=== PATIENT | female | born 1965 | race African-American/Black ===

== ENCOUNTER 2017-12-08 07:10 | Inpatient (IN) | payer OTHER ==
[~2017-12-08] VITALS: Ht 162.6 cm; Wt 108.9 kg
[2017-12-08] MEDS ORDERED: Isovue-370 150ml vial INJ PRN (07:15)
[2017-12-08] MEDS ORDERED: Aspirin Baby 81mg ORAL ONE (07:30)
--- NOTE | 2017-12-08 07:39 | Emergency Room Report ---
History of Present Illness General Chief Complaint: Abdominal Pain Source: Patient Present Illness HPI Patient is a 52-year-old female brought in by EMS after increased burning sensation to her epigastric area. Patient prior history of gastroesophageal reflux. She reports having increased pain with deep breath. Patient prior history of deep venous thrombosis and previously been on Coumadin. She denies any recent Coumadin use. Patient denied any hematemesis or bloody stools. The patient was having prior history of gastric reflux. Allergies: Coded Allergies: TRAMADOL (Verified Allergy, Unknown, 12/08/17) Patient History Past Medical History: see triage record Last Menstrual Period: unk Reviewed Nursing Documentation: PMH: Agreed; PSxH: Agreed Nursing Documentation-PMH Past Medical History: No History, Except For Hx Asthma: Yes Hx Gastrointestinal Problems: Yes - GERD Review of Systems All Other Systems: negative except mentioned in HPI Physical Exam Vital Signs Date Time Temp Pulse Resp B/P (MAP) Pulse Ox O2 Delivery O2 Flow Rate FiO2 12/08/17 07:02 98.3 76 16 123/76 99 Room Air 98.2 Sp02 EP Interpretation: reviewed, normal General Appearance: normal inspection, well appearing, no apparent distress, alert, GCS 15 Head: atraumatic ENT: normal ENT inspection, hearing grossly normal, normal voice Neck: normal inspection, full range of motion, supple, no bony tend Respiratory: normal inspection, lungs clear, normal breath sounds, no respiratory distress, no retraction, no wheezing Cardiovascular #1: regular rate, rhythm, no edema Gastrointestinal: normal inspection, normal bowel sounds, non tender, soft, no guarding, no hernia Genitourinary: no CVA tenderness Musculoskeletal: normal inspection, back normal, normal range of motion Neurologic: normal inspection, alert, oriented x3, responsive, spring tester III-XII nml as tested, speech normal Psychiatric: normal inspection, judgement/insight normal, mood/affect normal Skin: normal inspection, normal color, no rash Medical Decision Making Diagnostic Impression: Primary Impression: Chest pain Additional Impressions: ACS (acute coronary syndrome) Pleural effusion, left Pneumonia ER Course Patient presented for chest pain. Differential diagnosis included but was not limited to acute coronary syndrome, pulmonary embolism, pneumonia, aortic dissection, shingles, pneumothorax, aortic dissection, esophageal rupture, pericarditis. Because of complexity of patient's case laboratory testing and imaging studies were ordered. EKG interpreted by me showed normal sinus rhythm with a rate of 71 with anterior lateral T-wave inversion. The patient was given aspirin. She was also given acid blockers. A CTA was ordered due to patient's prior history of DVT and risk for PE. CTA read by radiology showed left basilar consolidation, left pleural fluid. Minimal pericardial thickening. Dr. Nikhil Gibbs was contacted for inpatient management Labs Test 12/08/17 07:30 White Blood Count 8.4 K/UL (4.8-10.8) Red Blood Count 4.20 M/UL (4.20-5.40) Hemoglobin 12.4 G/DL (12.0-16.0) Hematocrit 37.5 % (37.0-47.0) Mean Corpuscular Volume 89 FL (80-99) Mean Corpuscular Hemoglobin 29.5 PG (27.0-31.0) Mean Corpuscular Hemoglobin Concent 33.0 G/DL (32.0-36.0) Red Cell Distribution Width 13.1 % (11.6-14.8) Platelet Count 359 K/UL (150-450) Mean Platelet Volume 6.0 FL (6.5-10.1) Neutrophils (%) (Auto) 63.6 % (45.0-75.0) Lymphocytes (%) (Auto) 29.3 % (20.0-45.0) Monocytes (%) (Auto) 4.4 % (1.0-10.0) Eosinophils (%) (Auto) 1.4 % (0.0-3.0) Basophils (%) (Auto) 1.2 % (0.0-2.0) Prothrombin Time 9.7 SEC (9.30-11.50) Prothromb Time International Ratio 0.9 (0.9-1.1) Activated Partial Thromboplast Time 31 SEC (23-33) D-Dimer 1.52 mg/L FEU (0.00-0.49) Sodium Level 141 MMOL/L (136-145) Potassium Level 4.3 MMOL/L (3.5-5.1) Chloride Level 106 MMOL/L (98-107) Carbon Dioxide Level 27 MMOL/L (21-32) Anion Gap 8 mmol/L (5-15) Blood Urea Nitrogen 16 mg/dL (7-18) Creatinine 0.9 MG/DL (0.55-1.30) Estimat Glomerular Filtration Rate > 60 mL/min (>60) Glucose Level 149 MG/DL (74-106) Calcium Level 9.0 MG/DL (8.5-10.1) Total Bilirubin 0.2 MG/DL (0.2-1.0) Aspartate Amino Transf (AST/SGOT) 14 U/L (15-37) Alanine Aminotransferase (ALT/SGPT) 23 U/L (12-78) Alkaline Phosphatase 105 U/L (46-116) Total Creatine Kinase 65 U/L (26-308) Creatine Kinase MB 0.5 NG/ML (0.0-3.6) Creatine Kinase MB Relative Index 0.7 Troponin I 0.017 ng/mL (0.000-0.056) Pro-B-Type Natriuretic Peptide 64 pg/mL (0-125) Total Protein 7.7 G/DL (6.4-8.2) Albumin 3.5 G/DL (3.4-5.0) Globulin 4.2 g/dL Albumin/Globulin Ratio 0.8 (1.0-2.7) EKG Diagnostic Results Rate: normal Rhythm: NSR ST Segments: other - anterolateral t wave inversion Rhythm Strip Diag. Results EP Interpretation: yes Rhythm: NSR - 76, no PVC's, no ectopy Last Vital Signs Date Time Temp Pulse Resp B/P (MAP) Pulse Ox O2 Delivery O2 Flow Rate FiO2 12/08/17 07:02 98.3 76 16 123/76 99 Room Air 98.2 Status: unchanged Disposition: ADMITTED INPATIENT Condition: Serious Nico Santana MD Dec 08, 2017 07:39
[2017-12-08 07:41] LABS: BASOPHILS % (AUTO) 1.2 % (0.0-2.0); EOSINOPHILS % (AUTO) 1.4 % (0.0-3.0); HEMATOCRIT 37.5 % (37.0-47.0); HEMOGLOBIN 12.4 G/DL (12.0-16.0); LYMPHOCYTES % (AUTO) 29.3 % (20.0-45.0); MEAN CORPUSCULAR VOLUME 89 FL (80-99); MONOCYTES % (AUTO) 4.4 % (1.0-10.0); NEUTROPHILS % (AUTO) 63.6 % (45.0-75.0); PLATELET COUNT 359 K/UL (150-450); RED CELL DISTRIBUTION WIDTH 13.1 % (11.6-14.8); WHITE BLOOD COUNT 8.4 K/UL (4.8-10.8)
[2017-12-08 07:46] VITALS: BP 123/76
[2017-12-08 07:50] LABS: ANION GAP 8 mmol/L (5-15); BLOOD UREA NITROGEN 16 mg/dL (7-18); CARBON DIOXIDE 27 MMOL/L (21-32); CHLORIDE 106 MMOL/L (98-107); CREATININE 0.9 MG/DL (0.55-1.30); POTASSIUM 4.3 MMOL/L (3.5-5.1); SODIUM 141 MMOL/L (136-145)
[2017-12-08 07:52] LABS: INR 0.9 (0.9-1.1)
[2017-12-08 08:09] LABS: ALANINE AMINOTRANSFERASE 23 U/L (12-78); ALBUMIN 3.5 G/DL (3.4-5.0); ALBUMIN/GLOBULIN RATIO 0.8 (1.0-2.7); ALKALINE PHOSPHATASE 105 U/L (46-116); ASPARTATE AMINO TRANSFERASE 14 U/L (15-37); BILIRUBIN,TOTAL 0.2 MG/DL (0.2-1.0); CKMB 0.5 NG/ML (0.0-3.6); CREATINE KINASE 65 U/L (26-308)
[2017-12-08 08:41] VITALS: BP 120/61
[2017-12-08] MEDS ORDERED: Morphine Sulfate 4mg/ml Inj IVP ONE (08:45)
--- NOTE | 2017-12-08 09:23 | Diagnostic Imaging Report ---
ndication: Chest pain Technique: IV administration nonionic contrast. Spiral acquisitions obtained from the lung bases to the lung apices. Multiplanar and 3-D reconstructions were generated. Total dose length product 1163.42 mGycm. CTDIvol(s) 37.74 mGy. Dose reduction achieved using automated exposure control Comparison: none Findings: There is good quality opacification of the pulmonary arteries. No intraluminal filling defects or other findings to suggest acute pulmonary embolus demonstrated. No evidence of thoracic aortic aneurysm or dissection. No definite pulmonary arterial dilatation or right ventricular dilatation. The heart is mildly enlarged Areas of consolidation are seen in the left lower lobe and minimally in the posterior left upper lobe. Dependent atelectatic changes are seen in the right lower lobe. There is trace pleural fluid on the left. No masses or nodules. There is minimal pericardial thickening or fluid. No mediastinal or hilar mass or adenopathy. No axillary or chest wall mass or adenopathy. The included upper abdominal anatomy is unremarkable Impression: Negative for evidence of acute pulmonary embolus or other acute thoracic vascular pathology Left basilar pulmonary parenchymal consolidation, may indicate pneumonia Trace left pleural fluid Minimal dependent right lower lobe atelectatic changes Minimal pericardial thickening or fluid The CT scanner at [facility] is accredited by the [employer] and the scans are performed using protocols designed to limit radiation exposure to as low as reasonably achievable to attain images of sufficient resolution adequate for diagnostic evaluation.
[2017-12-08 09:49] LABS: BILIRUBIN, URINE NEGATIVE (NEGATIVE); COLOR,URINE PALE YELLOW; GLUCOSE, URINE (UA) NEGATIVE (NEGATIVE); KETONES,URINE NEGATIVE (NEGATIVE); LEUKOCYTE ESTERASE ,URINE 1+ (NEGATIVE); NITRITE,URINE NEGATIVE (NEGATIVE); PH,URINE 7 (4.5-8.0); PROTEIN,URINE NEGATIVE (NEGATIVE); UROBILINOGEN,URINE NORMAL MG/DL (0.0-1.0)
--- NOTE | 2017-12-08 09:57 | Diagnostic Imaging Report ---
Indication: Shortness of breath Technique: One view of the chest Comparison: none Findings: There are retrocardiac infiltrates with air bronchograms. The right lung and bilateral pleural spaces are clear. The heart is borderline enlarged Impression: Retrocardiac infiltrate Borderline cardiomegaly
[2017-12-08] MEDS ORDERED: Miralax 17gm pkt ORAL PRN (10:00)
[2017-12-08] MEDS ORDERED: Albuterol/Ipratropium 3ml neb HHN PRN ×2 (10:00→11:15)
[2017-12-08] MEDS ORDERED: Nitroglycerin Subl 0.4mg tab SL PRN (10:00)
[2017-12-08] MEDS ORDERED: Enalaprilat 2.5mg/2ml Inj IV PRN (10:00)
[2017-12-08] MEDS ORDERED: Ampicillin/Sulbactam Sod 3 GM in NS 110 ML IVPB ONE (10:00)
[2017-12-08] MEDS ORDERED: Ketorolac 30mg Inj IV PRN (10:00)
[2017-12-08] MEDS ORDERED: dilTIAZem HCl 25mg/5ml Inj IV PRN (10:00)
[2017-12-08 10:04] LABS: APPEARANCE,URINE SLIGHTLY CLOUDY
[2017-12-08 10:47] VITALS: BP 95/71
[2017-12-08] MEDS ORDERED: Promethazine/Codeine 5ml UD ORAL PRN (11:15)
--- NOTE | 2017-12-08 11:15 | Consultation ---
History of Present Illness General Date patient seen: Dec 08, 2017 Chief Complaint: Abdominal Pain Present Illness HPI 52-year-old female with hx of asmth, non-smoker, DVT brought in by EMS with CC of burning sensation to her epigastric area. She reports having increased pain with deep breath. No fever or cough. Pt is admitted to telemetry b/o abnormal EKG. A CT of chest ruled out acute PE and showed some parenchymal changes in LLL. Allergies: Coded Allergies: TRAMADOL (Verified Allergy, Unknown, 12/08/17) Patient History Healthcare decision maker Resuscitation status Advanced Directive on File Past Medical/Surgical History Past Medical/Surgical History: (1) History of asthma Review of Systems All Other Systems: negative except mentioned in HPI Physical Exam General Appearance: WD/WN, no apparent distress Lines, tubes and drains: peripheral HEENT: normocephalic Neck: non-tender, normal alignment Respiratory/Chest: chest wall non-tender, lungs clear Breasts: no masses Cardiovascular/Chest: normal peripheral pulses, normal rate, regularly irregular Abdomen: normal bowel sounds Genitourinary/Rectal: normal genital exam Extremities: normal range of motion Skin Exam: normal pigmentation 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 Last 24 Hour Vital Signs Date Time Temp Pulse Resp B/P (MAP) Pulse Ox O2 Delivery O2 Flow Rate FiO2 12/08/17 10:47 98.5 16 95/71 99 Room Air 98.5 12/08/17 10:47 98.5 16 95/71 99 Room Air 98.5 12/08/17 08:41 98.5 16 120/61 99 Room Air 98.5 12/08/17 08:40 98.2 12/08/17 07:46 98.2 16 123/76 99 Room Air 98.2 12/08/17 07:02 98.3 76 16 123/76 99 Room Air 98.2 Laboratory Tests Test 12/08/17 07:30 12/08/17 09:20 12/08/17 10:00 White Blood Count 8.4 K/UL (4.8-10.8) Red Blood Count 4.20 M/UL (4.20-5.40) Hemoglobin 12.4 G/DL (12.0-16.0) Hematocrit 37.5 % (37.0-47.0) Mean Corpuscular Volume 89 FL (80-99) Mean Corpuscular Hemoglobin 29.5 PG (27.0-31.0) Mean Corpuscular Hemoglobin Concent 33.0 G/DL (32.0-36.0) Red Cell Distribution Width 13.1 % (11.6-14.8) Platelet Count 359 K/UL (150-450) Mean Platelet Volume 6.0 FL (6.5-10.1) L Neutrophils (%) (Auto) 63.6 % (45.0-75.0) Lymphocytes (%) (Auto) 29.3 % (20.0-45.0) Monocytes (%) (Auto) 4.4 % (1.0-10.0) Eosinophils (%) (Auto) 1.4 % (0.0-3.0) Basophils (%) (Auto) 1.2 % (0.0-2.0) Prothrombin Time 9.7 SEC (9.30-11.50) Prothromb Time International Ratio 0.9 (0.9-1.1) Activated Partial Thromboplast Time 31 SEC (23-33) D-Dimer 1.52 mg/L FEU (0.00-0.49) H Sodium Level 141 MMOL/L (136-145) Potassium Level 4.3 MMOL/L (3.5-5.1) Chloride Level 106 MMOL/L (98-107) Carbon Dioxide Level 27 MMOL/L (21-32) Anion Gap 8 mmol/L (5-15) Blood Urea Nitrogen 16 mg/dL (7-18) Creatinine 0.9 MG/DL (0.55-1.30) Estimat Glomerular Filtration Rate > 60 mL/min (>60) Glucose Level 149 MG/DL (74-106) H Calcium Level 9.0 MG/DL (8.5-10.1) Total Bilirubin 0.2 MG/DL (0.2-1.0) Aspartate Amino Transf (AST/SGOT) 14 U/L (15-37) L Alanine Aminotransferase (ALT/SGPT) 23 U/L (12-78) Alkaline Phosphatase 105 U/L (46-116) Total Creatine Kinase 65 U/L (26-308) Creatine Kinase MB 0.5 NG/ML (0.0-3.6) Creatine Kinase MB Relative Index 0.7 Troponin I 0.017 ng/mL (0.000-0.056) Pro-B-Type Natriuretic Peptide 64 pg/mL (0-125) Total Protein 7.7 G/DL (6.4-8.2) Albumin 3.5 G/DL (3.4-5.0) Globulin 4.2 g/dL Albumin/Globulin Ratio 0.8 (1.0-2.7) L Urine Color Pale yellow Urine Appearance Slightly cloudy Urine pH 7 (4.5-8.0) Urine Specific [place] 1.005 (1.005-1.035) Urine Protein Negative (NEGATIVE) Urine Glucose (UA) Negative (NEGATIVE) Urine Ketones Negative (NEGATIVE) Urine Occult Blood 2+ (NEGATIVE) H Urine Nitrite Negative (NEGATIVE) Urine Bilirubin Negative (NEGATIVE) Urine Urobilinogen Normal MG/DL (0.0-1.0) Urine Leukocyte Esterase 1+ (NEGATIVE) H Urine RBC 2-4 /HPF (0 - 2) H Urine WBC 2-4 /HPF (0 - 2) Urine Squamous Epithelial Cells Few /LPF (NONE/OCC) Urine Bacteria Few /HPF (NONE) Urine Opiates Screen Negative (NEGATIVE) Urine Barbiturates Screen Negative (NEGATIVE) Phencyclidine (PCP) Screen Negative (NEGATIVE) Urine Amphetamines Screen Negative (NEGATIVE) Urine Benzodiazepines Screen Negative (NEGATIVE) Urine Cocaine Screen Negative (NEGATIVE) Urine Marijuana (THC) Screen Negative (NEGATIVE) Lactic Acid Level 1.40 mmol/L (0.4-2.0) Height (Feet): 5 Height (Inches): 4.00 Weight (Pounds): 243 Medications Current Medications Medications (Trade) Dose Ordered Sig/Raghu Route PRN Reason Start Time Stop Time Status Last Admin Dose Admin Acetaminophen (Tylenol) 650 mg Q4H PRN ORAL FEVER 12/08/17 10:00 01/07/18 09:59 Albuterol/ Ipratropium (Albuterol/ Ipratropium) 3 ml Q4H PRN HHN Shortness of Breath 12/08/17 10:00 12/13/17 09:59 Aspirin (ASA) 162 mg DAILY ORAL 12/09/17 09:00 01/08/18 08:59 Diltiazem HCl (Cardizem) 10 mg Q1H PRN IV heart rate more than 120 12/08/17 10:00 01/07/18 09:59 Enalaprilat (Vasotec) 2.5 mg Q6H PRN IV sbp more than 160 12/08/17 10:00 01/07/18 09:59 Heparin Sodium (Porcine) (Heparin 5000 units/ml) 5,000 units EVERY 12 HOURS SUBQ 12/08/17 21:00 01/07/18 20:59 Iopamidol (Isovue-370 150ml) 150 ml NOW PRN INJ Radiology Procedure 12/08/17 07:15 12/10/17 07:12 Ketorolac Tromethamine (Toradol 30mg) 30 mg Q6H PRN IV moderate pain ( 4-6) 12/08/17 10:00 12/13/17 09:59 Nitroglycerin (Ntg) 0.4 mg Q5M PRN SL Prn Chest Pain 12/08/17 10:00 01/07/18 09:59 Ondansetron HCl (Zofran) 4 mg Q6H PRN IVP Nausea & Vomiting 12/08/17 10:00 01/07/18 09:59 Polyethylene Glycol (Miralax) 17 gm DAILYPRN PRN ORAL Constipation 12/08/17 10:00 01/07/18 09:59 Temazepam (Restoril) 15 mg HSPRN PRN ORAL Insomnia 12/08/17 10:00 12/15/17 09:59 Assessment/Plan Problem List: (1) ACS (acute coronary syndrome) ICD Codes: I24.9 - Acute ischemic heart disease, unspecified SNOMED: 417617413 (2) Pneumonia ICD Codes: J18.9 - Pneumonia, unspecified organism SNOMED: 119223386 (3) Costochondritis ICD Codes: M94.0 - Chondrocostal junction syndrome [Tietze] SNOMED: 69724064 (4) History of asthma ICD Codes: Z87.09 - Personal history of other diseases of the respiratory system SNOMED: 328108450 (5) GERD (gastroesophageal reflux disease) ICD Codes: K21.9 - Gastro-esophageal reflux disease without esophagitis SNOMED: 056319863 Assessment/Plan serial EKG, troponin, Echo, cardiology to see sputum for c/s start Levofloxacin symptomatic treatment respiratory treatment. Tyra Lawrence MD Dec 08, 2017 11:15
[2017-12-08 12:00] VITALS: BP 120/68
--- NOTE | 2017-12-08 13:55 | Cardiology Report ---
APPROVED REPORT EXAM: Two-dimensional and M-mode echocardiogram with Doppler and color Doppler. INDICATION LV FUNCTION M-Mode DIMENSIONS IVSd1.2 (0.7-1.1cm)Left Atrium (MM)3.3 (1.6-4.0cm) LVDd5.7 (3.5-5.6cm)Aortic Root3.5 (2.0-3.7cm) PWd1.3 (0.7-1.1cm)Aortic Cusp Exc.1.9 (1.5-2.0cm) IVSs1.4 cm LVDs3.9 (2.5-4.0cm) PWs1.7 cm Normal left ventricular chamber size, systolic function and wall motion . Left ventricular ejection fraction estimated to be 65-70 %. Mild left ventricular hypertrophy by 2-D. No evidence of pericardial effusion. All other cardiac chamber sizes are within normal limits. Focal aortic valve sclerosis with adequate cusp excursion. Mildly Thickened mitral valve leaflets with normal excursion. Mildly Mitral annulus and aortic root calcification. Pulmonic valve not well visualized. Normal tricuspid valve structure. IVC at normal size with physiologic collapse . A color flow and spectral Doppler study was performed and revealed: No aortic regurgitation. Trace mitral regurgitation. Mitral diastolic velocities suggest reduced left ventricular relaxation c/w mild LV diastolic dysfunction (Grade I ). Mild tricuspid regurgitation. Tricuspid systolic velocities suggests peak right ventricular systolic pressure of 30mmHg. Trace Pulmonic regurgitation present.
--- NOTE | 2017-12-08 14:55 | Cardiology Report ---
APPROVED REPORT EKG Measurement Heart [id number] Normal sinus rhythm T wave abnormality, consider anterolateral ischemia Abnormal ECG
[2017-12-08 16:00] VITALS: BP 121/65
--- NOTE | 2017-12-08 16:48 | Consultation ---
History of Present Illness General Time patient seen: 18:52 Chief Complaint: Abdominal Pain Present Illness HPI 52 y/o female presents w/CP and epigastric pain. EKG with anterolateral ischemia. Echo with preserved LV function, D dimer elevated, CTA negative for PE. Hx of DVT 10 years ago. Chest c ray with small left pleural effusion. Troponin negative x2 Allergies: Coded Allergies: TRAMADOL (Verified Allergy, Unknown, 12/08/17) Patient History Healthcare decision maker Resuscitation status Full Code Advanced Directive on File Review of Systems Constitutional: Reports: no symptoms Eye: Reports: no symptoms ENT: Reports: no symptoms Respiratory: Reports: no symptoms Cardiovascular: Reports: chest pain Gastrointestinal: Reports: abdominal pain Genitourinary: Reports: no symptoms Musculoskeletal: Reports: no symptoms Skin: Reports: no symptoms Psychiatric: Reports: no symptoms Neurological: Reports: no symptoms Endocrine: Reports: no symptoms Hematologic/Lymphatic: Reports: no symptoms Physical Exam General Appearance: no apparent distress Lines, tubes and drains: peripheral HEENT: normocephalic Neck: non-tender Respiratory/Chest: chest wall non-tender Cardiovascular/Chest: normal peripheral pulses Abdomen: normal bowel sounds Extremities: normal range of motion Skin Exam: normal pigmentation 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 Last 24 Hour Vital Signs Date Time Temp Pulse Resp B/P (MAP) Pulse Ox O2 Delivery O2 Flow Rate FiO2 12/08/17 10:47 98.5 16 95/71 99 Room Air 98.5 12/08/17 10:47 98.5 16 95/71 99 Room Air 98.5 12/08/17 08:41 98.5 16 120/61 99 Room Air 98.5 12/08/17 08:40 98.2 12/08/17 07:46 98.2 16 123/76 99 Room Air 98.2 12/08/17 07:02 98.3 76 16 123/76 99 Room Air 98.2 Laboratory Tests Test 12/08/17 07:30 12/08/17 09:20 12/08/17 10:00 12/08/17 14:05 White Blood Count 8.4 K/UL (4.8-10.8) Red Blood Count 4.20 M/UL (4.20-5.40) Hemoglobin 12.4 G/DL (12.0-16.0) Hematocrit 37.5 % (37.0-47.0) Mean Corpuscular Volume 89 FL (80-99) Mean Corpuscular Hemoglobin 29.5 PG (27.0-31.0) Mean Corpuscular Hemoglobin Concent 33.0 G/DL (32.0-36.0) Red Cell Distribution Width 13.1 % (11.6-14.8) Platelet Count 359 K/UL (150-450) Mean Platelet Volume 6.0 FL (6.5-10.1) L Neutrophils (%) (Auto) 63.6 % (45.0-75.0) Lymphocytes (%) (Auto) 29.3 % (20.0-45.0) Monocytes (%) (Auto) 4.4 % (1.0-10.0) Eosinophils (%) (Auto) 1.4 % (0.0-3.0) Basophils (%) (Auto) 1.2 % (0.0-2.0) Prothrombin Time 9.7 SEC (9.30-11.50) Prothromb Time International Ratio 0.9 (0.9-1.1) Activated Partial Thromboplast Time 31 SEC (23-33) D-Dimer 1.52 mg/L FEU (0.00-0.49) H Sodium Level 141 MMOL/L (136-145) Potassium Level 4.3 MMOL/L (3.5-5.1) Chloride Level 106 MMOL/L (98-107) Carbon Dioxide Level 27 MMOL/L (21-32) Anion Gap 8 mmol/L (5-15) Blood Urea Nitrogen 16 mg/dL (7-18) Creatinine 0.9 MG/DL (0.55-1.30) Estimat Glomerular Filtration Rate > 60 mL/min (>60) Glucose Level 149 MG/DL (74-106) H Calcium Level 9.0 MG/DL (8.5-10.1) Total Bilirubin 0.2 MG/DL (0.2-1.0) Aspartate Amino Transf (AST/SGOT) 14 U/L (15-37) L Alanine Aminotransferase (ALT/SGPT) 23 U/L (12-78) Alkaline Phosphatase 105 U/L (46-116) Total Creatine Kinase 65 U/L (26-308) Creatine Kinase MB 0.5 NG/ML (0.0-3.6) Creatine Kinase MB Relative Index 0.7 Troponin I 0.017 ng/mL (0.000-0.056) 0.017 ng/mL (0.000-0.056) Pro-B-Type Natriuretic Peptide 64 pg/mL (0-125) Total Protein 7.7 G/DL (6.4-8.2) Albumin 3.5 G/DL (3.4-5.0) Globulin 4.2 g/dL Albumin/Globulin Ratio 0.8 (1.0-2.7) L Urine Color Pale yellow Urine Appearance Slightly cloudy Urine pH 7 (4.5-8.0) Urine Specific [place] 1.005 (1.005-1.035) Urine Protein Negative (NEGATIVE) Urine Glucose (UA) Negative (NEGATIVE) Urine Ketones Negative (NEGATIVE) Urine Occult Blood 2+ (NEGATIVE) H Urine Nitrite Negative (NEGATIVE) Urine Bilirubin Negative (NEGATIVE) Urine Urobilinogen Normal MG/DL (0.0-1.0) Urine Leukocyte Esterase 1+ (NEGATIVE) H Urine RBC 2-4 /HPF (0 - 2) H Urine WBC 2-4 /HPF (0 - 2) Urine Squamous Epithelial Cells Few /LPF (NONE/OCC) Urine Bacteria Few /HPF (NONE) Urine Opiates Screen Negative (NEGATIVE) Urine Barbiturates Screen Negative (NEGATIVE) Phencyclidine (PCP) Screen Negative (NEGATIVE) Urine Amphetamines Screen Negative (NEGATIVE) Urine Benzodiazepines Screen Negative (NEGATIVE) Urine Cocaine Screen Negative (NEGATIVE) Urine Marijuana (THC) Screen Negative (NEGATIVE) Lactic Acid Level 1.40 mmol/L (0.4-2.0) Height (Feet): 5 Height (Inches): 4.00 Weight (Pounds): 240 Medications Current Medications Medications (Trade) Dose Ordered Sig/Raghu Route PRN Reason Start Time Stop Time Status Last Admin Dose Admin Acetaminophen (Tylenol) 650 mg Q4H PRN ORAL FEVER 12/08/17 10:00 01/07/18 09:59 Albuterol/ Ipratropium (Albuterol/ Ipratropium) 3 ml Q4H PRN HHN Shortness of Breath 12/08/17 11:15 12/13/17 11:14 Aspirin (ASA) 162 mg DAILY ORAL 12/09/17 09:00 01/08/18 08:59 Diltiazem HCl (Cardizem) 10 mg Q1H PRN IV heart rate more than 120 12/08/17 10:00 01/07/18 09:59 Enalaprilat (Vasotec) 2.5 mg Q6H PRN IV sbp more than 160 12/08/17 10:00 01/07/18 09:59 Heparin Sodium (Porcine) (Heparin 5000 units/ml) 5,000 units EVERY 12 HOURS SUBQ 12/08/17 21:00 01/07/18 20:59 Iopamidol (Isovue-370 150ml) 150 ml NOW PRN INJ Radiology Procedure 12/08/17 07:15 12/10/17 07:12 Ketorolac Tromethamine (Toradol 30mg) 30 mg Q6H PRN IV moderate pain ( 4-6) 12/08/17 10:00 12/13/17 09:59 12/08/17 13:58 Levofloxacin 100 ml @ 100 mls/hr Q24H IVPB 12/08/17 13:00 12/15/17 12:59 12/08/17 13:45 Nitroglycerin (Ntg) 0.4 mg Q5M PRN SL Prn Chest Pain 12/08/17 10:00 01/07/18 09:59 Ondansetron HCl (Zofran) 4 mg Q6H PRN IVP Nausea & Vomiting 12/08/17 10:00 01/07/18 09:59 Polyethylene Glycol (Miralax) 17 gm DAILYPRN PRN ORAL Constipation 12/08/17 10:00 01/07/18 09:59 Promethazine HCl/ Codeine (Phenergan with Codeine) 5 ml Q4H PRN ORAL For Cough 12/08/17 11:15 01/07/18 11:14 Temazepam (Restoril) 15 mg HSPRN PRN ORAL Insomnia 12/08/17 10:00 12/15/17 09:59 Assessment/Plan Status: stable Assessment/Plan 1-Aspirin 2-Statin 3-H pylori testing 4- Omeprazole 5 -EKG/Echo reviewed, troponin negative 6 -Plan for stress test in Edgar Moran M.D. Dec 08, 2017 16:48
--- NOTE | 2017-12-08 19:01 | History & Physical ---
History and Physical History & Physicial Dictated for Int Med-Dr Gibbs no. [id number]. Clay Fermin MD Dec 08, 2017 19:01
[2017-12-08 20:00] VITALS: BP 128/74
[2017-12-08] MEDS: Heparin 5000 units/ml inj SUBQ SCH (21:38)
--- NOTE | 2017-12-08 23:30 | History and Physical Report ---
DATE OF ADMISSION: 12/08/2017 CHIEF COMPLAINT: This is a 52-year-old, -[place] female, presents with chief complaint of chest pain. HISTORY OF PRESENT ILLNESS: The patient has a history of right leg deep venous thrombosis 12 years ago. The patient was on Coumadin at that time. History of present illness began early this morning. The patient was awakened from her sleep with left-sided chest pain. There was radiation to the epigastric region. The patient was transported via EMS to [facility]. The patient is admitted with chest pain to rule out acute coronary syndrome versus pulmonary embolism. REVIEW OF SYSTEMS: CONSTITUTIONAL: The patient denies weight loss or weight gain. The patient denies fevers or chills. HEENT: The patient denies ear or throat pain. The patient denies headache. CARDIOVASCULAR: The patient complains of chest pain as above. The patient denies palpitations. CHEST: The patient denies wheezing or shortness of breath. ABDOMEN: The patient denies nausea, vomiting, diarrhea, or constipation. The patient does complain of epigastric pain as above. NEUROMUSCULAR: The patient denies seizures or generalized weakness. GENITOURINARY: The patient denies dysuria or increased frequency of urination. PAST MEDICAL HISTORY: Significant for, 1. Right leg deep venous thrombosis 12 years ago. 2. Asthma. 3. Arthritis. PAST SURGICAL HISTORY: Significant for laparoscopic cholecystectomy. CURRENT MEDICATIONS: The patient denies. ALLERGIES: To tramadol. SOCIAL HISTORY: The patient is single and is unemployed. The patient denies tobacco or alcohol use. PHYSICAL EXAMINATION: VITAL SIGNS: Temperature 98.5, respirations 16, pulse 77, and blood pressure 95/71. GENERAL: The patient is a well-developed, well-nourished, obese -[place] female, in no apparent distress. HEENT: Eyes, pupils are equal responsive to light and accommodation. Extraocular movements are intact. NECK: Supple without lymphadenopathy. CHEST: Lungs are clear to auscultation bilaterally without wheezes or rales. CARDIOVASCULAR: Regular rhythm and rate. S1 and S2 are normal without murmurs, rubs, or gallops. ABDOMEN: Soft, nontender, nondistended with positive bowel sounds. No evidence of hepatosplenomegaly. Currently, no rebound or guarding noted. EXTREMITIES: Negative for clubbing, cyanosis, or edema. RECTAL/GENITAL: Refused. NEUROLOGIC: Cranial nerves II through XII are grossly intact without focal deficits. Motor strength is 5/5 bilaterally. Deep tendon reflexes are 2+ plantar. LABORATORY STUDIES: WBC 8.4, hemoglobin 12.4, hematocrit 37.5, platelets 259,000, sodium 141, potassium 4.3, chloride 106, CO2 27, BUN 16, creatinine 0.9, glucose 149. Troponin normal at 0.017. Chest x-ray revealed retrocardiac infiltrate. A CT angiogram of the chest was reported as negative for pulmonary embolus. ASSESSMENT: This is a 52-year-old -[place] female: 1. Retrocardiac pneumonia. 2. Chest pain. 3. Epigastric pain. 4. Asthma. 5. Arthritis. 6. Obesity. PLAN: 1. Retrocardiac pneumonia. The patient has been started empirically on intravenous Levaquin. A Pulmonary consultation has been obtained with Dr. Tyra Lawrence. The patient has received Zosyn in the emergency room. We will follow recommendations of Pulmonary. 2. Asthma. The patient will remain on albuterol/ipratropium nebulized q.4 h. p.r.n. 3. Morbid obesity. 4. Chest pain. A Cardiology consultation has been obtained with Dr. Moran. Serial troponin levels will be performed. Chest pain may be secondary to pneumonia above or may be acute coronary syndrome. We will follow recommendation of Cardiology. Clay Fermin M.D. DR: VIN JOB#: [id number] CC:
[2017-12-09] VITALS: BP 115/62
[2017-12-09 04:00] VITALS: BP 120/70
[2017-12-09 08:00] VITALS: BP 154/73
[2017-12-09] MEDS: Aspirin Baby 81mg ORAL SCH (08:12)
[2017-12-09] MEDS: Heparin 5000 units/ml inj SUBQ SCH ×2 (08:15→21:18)
[2017-12-09 10:19] LABS: EOSINOPHILS % (AUTO) 1.9 % (0.0-3.0); HEMOGLOBIN 12.1 G/DL (12.0-16.0); LYMPHOCYTES % (AUTO) 29.4 % (20.0-45.0); MEAN CORPUSCULAR VOLUME 89 FL (80-99); MONOCYTES % (AUTO) 4.4 % (1.0-10.0); NEUTROPHILS % (AUTO) 63.2 % (45.0-75.0); PLATELET COUNT 382 K/UL (150-450); RED BLOOD COUNT 4.25 M/UL (4.20-5.40); RED CELL DISTRIBUTION WIDTH 13.2 % (11.6-14.8)
[2017-12-09 10:40] LABS: CHOLESTEROL 196 MG/DL (< 200); HDL CHOLESTEROL 64 MG/DL (40-60); TRIGLYCERIDES 68 MG/DL (30-150)
[2017-12-09 12:00] VITALS: BP 124/71
--- NOTE | 2017-12-09 13:36 | Cardiology Progress Note ---
Assessment/Plan Status: stable Assessment/Plan 1-Aspirin 2-Statin 3-H pylori testing 4- Omeprazole 5 -EKG/Echo reviewed, troponin negative, CTA negative 6 -Plan for stress test in AM Subjective Cardiovascular: Reports: no symptoms Respiratory: Reports: no symptoms Gastrointestinal/Abdominal: Reports: no symptoms Genitourinary: Reports: no symptoms Subjective No acute events Troponin negative CTA negative for PE TTe with preserved function No current chest pain Objective Last 24 Hour Vital Signs Date Time Temp Pulse Resp B/P (MAP) Pulse Ox O2 Delivery O2 Flow Rate FiO2 12/09/17 12:00 97.9 81 20 124/71 95 Room Air 97.9 12/09/17 12:00 76 12/09/17 08:00 97.8 77 21 154/73 94 Room Air 97.8 12/09/17 08:00 77 12/09/17 04:00 65 12/09/17 04:00 97.6 68 19 120/70 96 Room Air 97.6 12/09/17 00:00 98.0 70 20 115/62 96 Room Air 98.0 12/08/17 20:00 75 12/08/17 20:00 98.1 76 20 128/74 96 Room Air 98.1 12/08/17 16:00 84 12/08/17 16:00 98.0 77 19 121/65 96 Room Air 98.0 General Appearance: no apparent distress EENT: PERRL/EOMI Neck: non-tender Rhythm: NSR Cardiovascular: normal peripheral pulses Respiratory/Chest: chest wall non-tender Abdomen: normal bowel sounds, non tender Extremities: normal range of motion Neurologic: 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 classer II-XII grossly normal Intake and Output 12/08/17 12/09/17 19:00 07:00 Intake Total 300 ml 250 ml Balance 300 ml 250 ml Intake Oral 300 ml 250 ml # Voids 4 5 Laboratory Tests Test 12/08/17 14:05 12/09/17 10:00 Troponin I 0.017 ng/mL (0.000-0.056) 0.000 ng/mL (0.000-0.056) White Blood Count 7.0 K/UL (4.8-10.8) Red Blood Count 4.25 M/UL (4.20-5.40) Hemoglobin 12.1 G/DL (12.0-16.0) Hematocrit 38.0 % (37.0-47.0) Mean Corpuscular Volume 89 FL (80-99) Mean Corpuscular Hemoglobin 28.5 PG (27.0-31.0) Mean Corpuscular Hemoglobin Concent 31.9 G/DL (32.0-36.0) L Red Cell Distribution Width 13.2 % (11.6-14.8) Platelet Count 382 K/UL (150-450) Mean Platelet Volume 5.5 FL (6.5-10.1) L Neutrophils (%) (Auto) 63.2 % (45.0-75.0) Lymphocytes (%) (Auto) 29.4 % (20.0-45.0) Monocytes (%) (Auto) 4.4 % (1.0-10.0) Eosinophils (%) (Auto) 1.9 % (0.0-3.0) Basophils (%) (Auto) 1.0 % (0.0-2.0) Prothrombin Time 10.3 SEC (9.30-11.50) Prothromb Time International Ratio 1.0 (0.9-1.1) Activated Partial Thromboplast Time 31 SEC (23-33) C-Reactive Protein, Quantitative 4.8 mg/dL (0.00-0.90) H Triglycerides Level 68 MG/DL (30-150) Cholesterol Level 196 MG/DL (< 200) LDL Cholesterol 117 mg/dL (<100) H HDL Cholesterol 64 MG/DL (40-60) H Cholesterol/HDL Ratio 3.1 (3.3-4.4) L Thyroid Stimulating Hormone (TSH) 1.840 uiU/mL (0.358-3.740) Microbiology Date/Time Source Procedure Growth Status 12/08/17 10:02 Blood Blood Culture - Preliminary NO GROWTH AFTER 24 HOURS Resulted 12/08/17 10:00 Blood Blood Culture - Preliminary NO GROWTH AFTER 24 HOURS Resulted Edgar Moran M.D. Dec 09, 2017 13:36
--- NOTE | 2017-12-09 15:41 | Internal Med Progress Note ---
Subjective Date of Service: Dec 09, 2017 Physician Name Fermin,Clay Attending Physician Nikhil Gibbs MD Current Medications Medications (Trade) Dose Ordered Sig/Raghu Route PRN Reason Start Time Stop Time Status Last Admin Dose Admin Acetaminophen (Tylenol) 650 mg Q4H PRN ORAL FEVER 12/08/17 10:00 01/07/18 09:59 Albuterol/ Ipratropium (Albuterol/ Ipratropium) 3 ml Q4H PRN HHN Shortness of Breath 12/08/17 11:15 12/13/17 11:14 Aspirin (ASA) 162 mg DAILY ORAL 12/09/17 09:00 01/08/18 08:59 12/09/17 08:12 Diltiazem HCl (Cardizem) 10 mg Q1H PRN IV heart rate more than 120 12/08/17 10:00 01/07/18 09:59 Enalaprilat (Vasotec) 2.5 mg Q6H PRN IV sbp more than 160 12/08/17 10:00 01/07/18 09:59 Heparin Sodium (Porcine) (Heparin 5000 units/ml) 5,000 units EVERY 12 HOURS SUBQ 12/08/17 21:00 01/07/18 20:59 12/09/17 08:15 Iopamidol (Isovue-370 150ml) 150 ml NOW PRN INJ Radiology Procedure 12/08/17 07:15 12/10/17 07:12 Ketorolac Tromethamine (Toradol 30mg) 30 mg Q6H PRN IV moderate pain ( 4-6) 12/08/17 10:00 12/13/17 09:59 12/08/17 13:58 Levofloxacin 100 ml @ 100 mls/hr Q24H IVPB 12/08/17 13:00 12/15/17 12:59 12/09/17 13:07 Nitroglycerin (Ntg) 0.4 mg Q5M PRN SL Prn Chest Pain 12/08/17 10:00 01/07/18 09:59 Ondansetron HCl (Zofran) 4 mg Q6H PRN IVP Nausea & Vomiting 12/08/17 10:00 01/07/18 09:59 Polyethylene Glycol (Miralax) 17 gm DAILYPRN PRN ORAL Constipation 12/08/17 10:00 01/07/18 09:59 Promethazine HCl/ Codeine (Phenergan with Codeine) 5 ml Q4H PRN ORAL For Cough 12/08/17 11:15 01/07/18 11:14 Temazepam (Restoril) 15 mg HSPRN PRN ORAL Insomnia 12/08/17 10:00 12/15/17 09:59 Allergies: Coded Allergies: TRAMADOL (Verified Allergy, Unknown, 12/08/17) ROS Limited/Unobtainable: No Constitutional: Reports: no symptoms HEENT: Reports: no symptoms Cardiovascular: Reports: chest pain Respiratory: Reports: no symptoms Gastrointestinal/Abdominal: Reports: no symptoms Genitourinary: Reports: no symptoms Neurologic/Psychiatric: Reports: no symptoms Subjective 52 YO F admitted with chest pain. Cover for Int Med - Dr Gibbs. Await cardiac stress test Objective Last Vital Signs Date Time Temp Pulse Resp B/P (MAP) Pulse Ox O2 Delivery O2 Flow Rate FiO2 12/09/17 12:00 97.9 81 20 124/71 95 Room Air 97.9 General Appearance: WD/WN, no apparent distress, alert EENT: PERRL/EOMI, normal ENT inspection Neck: non-tender, normal alignment, supple Cardiovascular: normal peripheral pulses, normal rate, regular rhythm, no gallop/murmur, no JVD Respiratory/Chest: chest wall non-tender, lungs clear, normal breath sounds, no respiratory distress, no accessory muscle use Abdomen: normal bowel sounds, non tender, soft, no organomegaly, no mass Extremities: normal range of motion, non-tender 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, no motor/sensory deficits Skin: normal pigmentation, warm/dry Laboratory Tests Test 12/09/17 10:00 White Blood Count 7.0 K/UL (4.8-10.8) Red Blood Count 4.25 M/UL (4.20-5.40) Hemoglobin 12.1 G/DL (12.0-16.0) Hematocrit 38.0 % (37.0-47.0) Mean Corpuscular Volume 89 FL (80-99) Mean Corpuscular Hemoglobin 28.5 PG (27.0-31.0) Mean Corpuscular Hemoglobin Concent 31.9 G/DL (32.0-36.0) L Red Cell Distribution Width 13.2 % (11.6-14.8) Platelet Count 382 K/UL (150-450) Mean Platelet Volume 5.5 FL (6.5-10.1) L Neutrophils (%) (Auto) 63.2 % (45.0-75.0) Lymphocytes (%) (Auto) 29.4 % (20.0-45.0) Monocytes (%) (Auto) 4.4 % (1.0-10.0) Eosinophils (%) (Auto) 1.9 % (0.0-3.0) Basophils (%) (Auto) 1.0 % (0.0-2.0) Prothrombin Time 10.3 SEC (9.30-11.50) Prothromb Time International Ratio 1.0 (0.9-1.1) Activated Partial Thromboplast Time 31 SEC (23-33) Troponin I 0.000 ng/mL (0.000-0.056) C-Reactive Protein, Quantitative 4.8 mg/dL (0.00-0.90) H Triglycerides Level 68 MG/DL (30-150) Cholesterol Level 196 MG/DL (< 200) LDL Cholesterol 117 mg/dL (<100) H HDL Cholesterol 64 MG/DL (40-60) H Cholesterol/HDL Ratio 3.1 (3.3-4.4) L Thyroid Stimulating Hormone (TSH) 1.840 uiU/mL (0.358-3.740) Microbiology Date/Time Source Procedure Growth Status 12/08/17 10:02 Blood Blood Culture - Preliminary NO GROWTH AFTER 24 HOURS Resulted 12/08/17 10:00 Blood Blood Culture - Preliminary NO GROWTH AFTER 24 HOURS Resulted Intake and Output 12/08/17 12/09/17 19:00 07:00 Intake Total 300 ml 250 ml Balance 300 ml 250 ml Intake Oral 300 ml 250 ml # Voids 4 5 Assessment/Plan Problem List: (1) Arthritis (2) Obesity (3) Asthma (4) Epigastric abdominal pain (5) Chest pain Assessment & Plan: See cardiology note. Await cardiac stress test Status: not improved Clay Fermin MD Dec 09, 2017 15:41
[2017-12-09 16:00] VITALS: BP 122/72
[2017-12-09 20:00] VITALS: BP 131/71
[2017-12-10] VITALS: BP 125/68
[2017-12-10 04:00] VITALS: BP 119/68
[2017-12-10 08:00] VITALS: BP 141/78
[2017-12-10] MEDS: Aspirin Baby 81mg ORAL SCH (08:16)
[2017-12-10] MEDS: Heparin 5000 units/ml inj SUBQ SCH ×2 (08:17→20:53)
[2017-12-10 08:35] LABS: BASOPHILS % (AUTO) 0.9 % (0.0-2.0); EOSINOPHILS % (AUTO) 2.8 % (0.0-3.0); HEMATOCRIT 36.2 % (37.0-47.0); HEMOGLOBIN 11.9 G/DL (12.0-16.0); MEAN CORPUSCULAR VOLUME 90 FL (80-99); MONOCYTES % (AUTO) 4.7 % (1.0-10.0); NEUTROPHILS % (AUTO) 58.5 % (45.0-75.0); PLATELET COUNT 349 K/UL (150-450); RED BLOOD COUNT 4.03 M/UL (4.20-5.40); RED CELL DISTRIBUTION WIDTH 12.8 % (11.6-14.8); WHITE BLOOD COUNT 7.2 K/UL (4.8-10.8)
[2017-12-10 09:03] LABS: ANION GAP 9 mmol/L (5-15); BLOOD UREA NITROGEN 17 mg/dL (7-18); CALCIUM 9.2 MG/DL (8.5-10.1); CARBON DIOXIDE 23 MMOL/L (21-32); CHLORIDE 107 MMOL/L (98-107); CREATININE 0.9 MG/DL (0.55-1.30); POTASSIUM 4.2 MMOL/L (3.5-5.1); SODIUM 139 MMOL/L (136-145)
--- NOTE | 2017-12-10 10:44 | Cardiology Progress Note ---
Assessment/Plan Status: stable, progressing Assessment/Plan 1-Aspirin 2-Statin 3-H pylori testing 4- Omeprazole 5 -EKG/Echo reviewed, troponin negative, CTA negative 6 -Plan for stress test in AM Subjective Cardiovascular: Reports: no symptoms Respiratory: Reports: no symptoms Gastrointestinal/Abdominal: Reports: no symptoms Genitourinary: Reports: no symptoms Subjective No acute events Troponin negative CTA negative for PE TTe with preserved function No current chest pain Objective Last 24 Hour Vital Signs Date Time Temp Pulse Resp B/P (MAP) Pulse Ox O2 Delivery O2 Flow Rate FiO2 12/10/17 08:00 98.0 72 17 141/78 95 Room Air 98.0 12/10/17 08:00 80 12/10/17 04:00 73 12/10/17 04:00 97.8 76 19 119/68 96 Room Air 97.8 12/10/17 00:00 98.1 80 20 125/68 97 Room Air 98.1 12/10/17 00:00 80 12/09/17 20:00 98.4 84 20 131/71 97 Room Air 98.4 12/09/17 20:00 86 12/09/17 16:00 85 12/09/17 16:00 98.1 76 21 122/72 96 Room Air 98.1 12/09/17 12:00 97.9 81 20 124/71 95 Room Air 97.9 12/09/17 12:00 76 General Appearance: no apparent distress EENT: PERRL/EOMI Neck: non-tender Rhythm: NSR Cardiovascular: normal peripheral pulses Respiratory/Chest: chest wall non-tender Abdomen: normal bowel sounds Extremities: normal range of motion 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 Intake and Output 12/09/17 12/10/17 19:00 07:00 Intake Total 700 ml 250 ml Balance 700 ml 250 ml Intake Oral 600 ml 250 ml IV Total 100 ml # Voids 3 3 Laboratory Tests Test 12/10/17 06:40 White Blood Count 7.2 K/UL (4.8-10.8) Red Blood Count 4.03 M/UL (4.20-5.40) L Hemoglobin 11.9 G/DL (12.0-16.0) L Hematocrit 36.2 % (37.0-47.0) L Mean Corpuscular Volume 90 FL (80-99) Mean Corpuscular Hemoglobin 29.6 PG (27.0-31.0) Mean Corpuscular Hemoglobin Concent 33.0 G/DL (32.0-36.0) Red Cell Distribution Width 12.8 % (11.6-14.8) Platelet Count 349 K/UL (150-450) Mean Platelet Volume 5.8 FL (6.5-10.1) L Neutrophils (%) (Auto) 58.5 % (45.0-75.0) Lymphocytes (%) (Auto) 33.0 % (20.0-45.0) Monocytes (%) (Auto) 4.7 % (1.0-10.0) Eosinophils (%) (Auto) 2.8 % (0.0-3.0) Basophils (%) (Auto) 0.9 % (0.0-2.0) Sodium Level 139 MMOL/L (136-145) Potassium Level 4.2 MMOL/L (3.5-5.1) Chloride Level 107 MMOL/L (98-107) Carbon Dioxide Level 23 MMOL/L (21-32) Anion Gap 9 mmol/L (5-15) Blood Urea Nitrogen 17 mg/dL (7-18) Creatinine 0.9 MG/DL (0.55-1.30) Estimat Glomerular Filtration Rate > 60 mL/min (>60) Glucose Level 99 MG/DL (74-106) Calcium Level 9.2 MG/DL (8.5-10.1) Troponin I 0.000 ng/mL (0.000-0.056) Microbiology Date/Time Source Procedure Growth Status 12/08/17 10:02 Blood Blood Culture - Preliminary NO GROWTH AFTER 24 HOURS Resulted 12/08/17 10:00 Blood Blood Culture - Preliminary NO GROWTH AFTER 24 HOURS Resulted Edgar Moran M.D. Dec 10, 2017 10:44
[2017-12-10 11:49] VITALS: BP 156/88
[2017-12-10 16:00] VITALS: BP 127/75
--- NOTE | 2017-12-10 17:26 | Internal Med Progress Note ---
Subjective Date of Service: Dec 10, 2017 Physician Name Fermin,Clay Attending Physician Nikhil Gibbs MD Current Medications Medications (Trade) Dose Ordered Sig/Raghu Route PRN Reason Start Time Stop Time Status Last Admin Dose Admin Acetaminophen (Tylenol) 650 mg Q4H PRN ORAL FEVER 12/08/17 10:00 01/07/18 09:59 Albuterol/ Ipratropium (Albuterol/ Ipratropium) 3 ml Q4H PRN HHN Shortness of Breath 12/08/17 11:15 12/13/17 11:14 Aspirin (ASA) 162 mg DAILY ORAL 12/09/17 09:00 01/08/18 08:59 12/10/17 08:16 Diltiazem HCl (Cardizem) 10 mg Q1H PRN IV heart rate more than 120 12/08/17 10:00 01/07/18 09:59 Enalaprilat (Vasotec) 2.5 mg Q6H PRN IV sbp more than 160 12/08/17 10:00 01/07/18 09:59 Heparin Sodium (Porcine) (Heparin 5000 units/ml) 5,000 units EVERY 12 HOURS SUBQ 12/08/17 21:00 01/07/18 20:59 12/10/17 08:17 Ketorolac Tromethamine (Toradol 30mg) 30 mg Q6H PRN IV moderate pain ( 4-6) 12/08/17 10:00 12/13/17 09:59 12/08/17 13:58 Levofloxacin 100 ml @ 100 mls/hr Q24H IVPB 12/08/17 13:00 12/15/17 12:59 12/10/17 12:52 Nitroglycerin (Ntg) 0.4 mg Q5M PRN SL Prn Chest Pain 12/08/17 10:00 01/07/18 09:59 Ondansetron HCl (Zofran) 4 mg Q6H PRN IVP Nausea & Vomiting 12/08/17 10:00 01/07/18 09:59 Polyethylene Glycol (Miralax) 17 gm DAILYPRN PRN ORAL Constipation 12/08/17 10:00 01/07/18 09:59 Promethazine HCl/ Codeine (Phenergan with Codeine) 5 ml Q4H PRN ORAL For Cough 12/08/17 11:15 01/07/18 11:14 Temazepam (Restoril) 15 mg HSPRN PRN ORAL Insomnia 12/08/17 10:00 12/15/17 09:59 Allergies: Coded Allergies: TRAMADOL (Verified Allergy, Unknown, 12/08/17) ROS Limited/Unobtainable: No Constitutional: Reports: no symptoms HEENT: Reports: no symptoms Cardiovascular: Reports: no symptoms Respiratory: Reports: no symptoms Gastrointestinal/Abdominal: Reports: no symptoms Genitourinary: Reports: no symptoms Neurologic/Psychiatric: Reports: no symptoms Subjective 52 YO F admitted with chest pain. Cover for Int Med - Dr Gibbs. Await cardiac stress test Objective Last Vital Signs Date Time Temp Pulse Resp B/P (MAP) Pulse Ox O2 Delivery O2 Flow Rate FiO2 12/10/17 16:00 98.0 74 18 127/75 96 Room Air 98.0 Laboratory Tests Test 12/10/17 06:40 White Blood Count 7.2 K/UL (4.8-10.8) Red Blood Count 4.03 M/UL (4.20-5.40) L Hemoglobin 11.9 G/DL (12.0-16.0) L Hematocrit 36.2 % (37.0-47.0) L Mean Corpuscular Volume 90 FL (80-99) Mean Corpuscular Hemoglobin 29.6 PG (27.0-31.0) Mean Corpuscular Hemoglobin Concent 33.0 G/DL (32.0-36.0) Red Cell Distribution Width 12.8 % (11.6-14.8) Platelet Count 349 K/UL (150-450) Mean Platelet Volume 5.8 FL (6.5-10.1) L Neutrophils (%) (Auto) 58.5 % (45.0-75.0) Lymphocytes (%) (Auto) 33.0 % (20.0-45.0) Monocytes (%) (Auto) 4.7 % (1.0-10.0) Eosinophils (%) (Auto) 2.8 % (0.0-3.0) Basophils (%) (Auto) 0.9 % (0.0-2.0) Sodium Level 139 MMOL/L (136-145) Potassium Level 4.2 MMOL/L (3.5-5.1) Chloride Level 107 MMOL/L (98-107) Carbon Dioxide Level 23 MMOL/L (21-32) Anion Gap 9 mmol/L (5-15) Blood Urea Nitrogen 17 mg/dL (7-18) Creatinine 0.9 MG/DL (0.55-1.30) Estimat Glomerular Filtration Rate > 60 mL/min (>60) Glucose Level 99 MG/DL (74-106) Calcium Level 9.2 MG/DL (8.5-10.1) Troponin I 0.000 ng/mL (0.000-0.056) Microbiology Date/Time Source Procedure Growth Status 12/08/17 10:02 Blood Blood Culture - Preliminary NO GROWTH AFTER 24 HOURS Resulted 12/08/17 10:00 Blood Blood Culture - Preliminary NO GROWTH AFTER 24 HOURS Resulted Intake and Output 12/09/17 12/10/17 19:00 07:00 Intake Total 700 ml 250 ml Balance 700 ml 250 ml Intake Oral 600 ml 250 ml IV Total 100 ml # Voids 3 3 Objective General Appearance: WD/WN, no apparent distress, alert EENT: PERRL/EOMI, normal ENT inspection Neck: non-tender, normal alignment, supple Cardiovascular: normal peripheral pulses, normal rate, regular rhythm, no gallop/murmur, no JVD Respiratory/Chest: chest wall non-tender, lungs clear, normal breath sounds, no respiratory distress, no accessory muscle use Abdomen: normal bowel sounds, non tender, soft, no organomegaly, no mass Extremities: normal range of motion, non-tender 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 Await cardiac stress test Clay Fermin MD Dec 10, 2017 17:26
[2017-12-10 20:00] VITALS: BP 141/73
[2017-12-11] VITALS: BP 110/65
[2017-12-11 04:00] VITALS: BP 102/59
[2017-12-11] MEDS ORDERED: DULERA 100 MCG/13 GM INH (07:47)
[2017-12-11 08:05] LABS: BASOPHILS % (AUTO) 0.8 % (0.0-2.0); EOSINOPHILS % (AUTO) 2.2 % (0.0-3.0); HEMOGLOBIN 12.4 G/DL (12.0-16.0); LYMPHOCYTES % (AUTO) 29.2 % (20.0-45.0); MEAN CORPUSCULAR VOLUME 90 FL (80-99); MONOCYTES % (AUTO) 5.1 % (1.0-10.0); NEUTROPHILS % (AUTO) 62.7 % (45.0-75.0); PLATELET COUNT 364 K/UL (150-450); RED BLOOD COUNT 4.22 M/UL (4.20-5.40); RED CELL DISTRIBUTION WIDTH 13.2 % (11.6-14.8); WHITE BLOOD COUNT 7.1 K/UL (4.8-10.8)
[2017-12-11] MEDS ORDERED: OMEPRAZOLE10 M1 ORAL (08:09)
[2017-12-11] MEDS ORDERED: FEXOFENADINE H180 MG PO (08:09)
[2017-12-11] MEDS ORDERED: IBUPROFEN600 MG ORAL (08:09)
[2017-12-11] MEDS ORDERED: PRENATAL TABLE1 EAC2 PO (08:09)
[2017-12-11] MEDS ORDERED: METHOCARBAMOL5000 GM MC (08:09)
[2017-12-11] MEDS ORDERED: IPRATROPIU0.2 MG/1 M HHN (08:09)
[2017-12-11] MEDS ORDERED: VITAMIN B-12100 MCG ORAL (08:09)
[2017-12-11] MEDS ORDERED: VENTOLIN HFA18 GM INH (08:09)
[2017-12-11 08:26] LABS: ANION GAP 9 mmol/L (5-15); BLOOD UREA NITROGEN 16 mg/dL (7-18); CALCIUM 9.4 MG/DL (8.5-10.1); CARBON DIOXIDE 25 MMOL/L (21-32); CHLORIDE 106 MMOL/L (98-107); CREATININE 0.9 MG/DL (0.55-1.30); POTASSIUM 4.2 MMOL/L (3.5-5.1); SODIUM 140 MMOL/L (136-145)
[2017-12-11] MEDS: Aspirin Baby 81mg ORAL SCH (08:27)
[2017-12-11] MEDS: Heparin 5000 units/ml inj SUBQ SCH ×2 (08:28→20:51)
--- NOTE | 2017-12-11 12:40 | Cardiology Progress Note ---
Assessment/Plan Status: stable Assessment/Plan 1-Aspirin 2-Statin 3-H pylori testing 4- Omeprazole 5 -EKG/Echo reviewed, troponin negative, CTA negative 6 -Plan for stress test in AM Subjective Cardiovascular: Reports: no symptoms Respiratory: Reports: no symptoms Gastrointestinal/Abdominal: Reports: no symptoms Genitourinary: Reports: no symptoms Subjective No acute events Troponin negative CTA negative for PE TTe with preserved function No current chest pain Objective Last 24 Hour Vital Signs Date Time Temp Pulse Resp B/P (MAP) Pulse Ox O2 Delivery O2 Flow Rate FiO2 12/11/17 12:00 82 12/11/17 08:00 69 12/11/17 07:54 67 20 Room Air 21 12/11/17 04:00 97.2 75 18 102/59 95 Room Air 97.2 12/11/17 04:00 74 12/11/17 00:00 81 12/11/17 00:00 97.0 93 20 110/65 96 Room Air 97.0 12/10/17 20:00 97.2 90 18 141/73 96 97.2 12/10/17 20:00 101 12/10/17 16:00 92 12/10/17 16:00 98.0 74 18 127/75 96 Room Air 98.0 General Appearance: no apparent distress EENT: PERRL/EOMI Neck: non-tender Rhythm: NSR Cardiovascular: normal peripheral pulses Respiratory/Chest: chest wall non-tender Abdomen: normal bowel sounds Extremities: normal range of motion 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 Intake and Output 12/10/17 12/11/17 19:00 07:00 Intake Total 100 ml Balance 100 ml IV Total 100 ml # Voids 3 # Bowel Movements 1 Laboratory Tests Test 12/11/17 07:25 White Blood Count 7.1 K/UL (4.8-10.8) Red Blood Count 4.22 M/UL (4.20-5.40) Hemoglobin 12.4 G/DL (12.0-16.0) Hematocrit 38.0 % (37.0-47.0) Mean Corpuscular Volume 90 FL (80-99) Mean Corpuscular Hemoglobin 29.4 PG (27.0-31.0) Mean Corpuscular Hemoglobin Concent 32.7 G/DL (32.0-36.0) Red Cell Distribution Width 13.2 % (11.6-14.8) Platelet Count 364 K/UL (150-450) Mean Platelet Volume 5.6 FL (6.5-10.1) L Neutrophils (%) (Auto) 62.7 % (45.0-75.0) Lymphocytes (%) (Auto) 29.2 % (20.0-45.0) Monocytes (%) (Auto) 5.1 % (1.0-10.0) Eosinophils (%) (Auto) 2.2 % (0.0-3.0) Basophils (%) (Auto) 0.8 % (0.0-2.0) Sodium Level 140 MMOL/L (136-145) Potassium Level 4.2 MMOL/L (3.5-5.1) Chloride Level 106 MMOL/L (98-107) Carbon Dioxide Level 25 MMOL/L (21-32) Anion Gap 9 mmol/L (5-15) Blood Urea Nitrogen 16 mg/dL (7-18) Creatinine 0.9 MG/DL (0.55-1.30) Estimat Glomerular Filtration Rate > 60 mL/min (>60) Glucose Level 113 MG/DL (74-106) H Calcium Level 9.4 MG/DL (8.5-10.1) Edgar Moran M.D. Dec 11, 2017 12:40
--- NOTE | 2017-12-11 18:34 | Internal Med Progress Note ---
Subjective Date of Service: Dec 11, 2017 Physician Name FerminClay Attending Physician Nikhil Gibbs MD Current Medications Medications (Trade) Dose Ordered Sig/Raghu Route PRN Reason Start Time Stop Time Status Last Admin Dose Admin Acetaminophen (Tylenol) 650 mg Q4H PRN ORAL FEVER 12/08/17 10:00 01/07/18 09:59 Albuterol/ Ipratropium (Albuterol/ Ipratropium) 3 ml Q4H PRN HHN Shortness of Breath 12/08/17 11:15 12/13/17 11:14 Aspirin (ASA) 162 mg DAILY ORAL 12/09/17 09:00 01/08/18 08:59 12/11/17 08:27 Diltiazem HCl (Cardizem) 10 mg Q1H PRN IV heart rate more than 120 12/08/17 10:00 01/07/18 09:59 Enalaprilat (Vasotec) 2.5 mg Q6H PRN IV sbp more than 160 12/08/17 10:00 01/07/18 09:59 Heparin Sodium (Porcine) (Heparin 5000 units/ml) 5,000 units EVERY 12 HOURS SUBQ 12/08/17 21:00 01/07/18 20:59 12/11/17 08:28 Ketorolac Tromethamine (Toradol 30mg) 30 mg Q6H PRN IV moderate pain ( 4-6) 12/08/17 10:00 12/13/17 09:59 12/08/17 13:58 Levofloxacin 100 ml @ 100 mls/hr Q24H IVPB 12/08/17 13:00 12/15/17 12:59 12/11/17 14:45 Nitroglycerin (Ntg) 0.4 mg Q5M PRN SL Prn Chest Pain 12/08/17 10:00 01/07/18 09:59 Ondansetron HCl (Zofran) 4 mg Q6H PRN IVP Nausea & Vomiting 12/08/17 10:00 01/07/18 09:59 Polyethylene Glycol (Miralax) 17 gm DAILYPRN PRN ORAL Constipation 12/08/17 10:00 01/07/18 09:59 Promethazine HCl/ Codeine (Phenergan with Codeine) 5 ml Q4H PRN ORAL For Cough 12/08/17 11:15 01/07/18 11:14 Temazepam (Restoril) 15 mg HSPRN PRN ORAL Insomnia 12/08/17 10:00 12/15/17 09:59 Allergies: Coded Allergies: TRAMADOL (Verified Allergy, Unknown, 12/08/17) ROS Limited/Unobtainable: No Constitutional: Reports: no symptoms HEENT: Reports: no symptoms Cardiovascular: Reports: chest pain Respiratory: Reports: no symptoms Gastrointestinal/Abdominal: Reports: no symptoms Genitourinary: Reports: no symptoms Neurologic/Psychiatric: Reports: no symptoms Subjective 52 YO F admitted with chest pain. Cover for Int Med - Dr Gibbs. Await cardiac stress test Objective Last Vital Signs Date Time Temp Pulse Resp B/P (MAP) Pulse Ox O2 Delivery O2 Flow Rate FiO2 12/11/17 12:00 82 12/11/17 07:54 20 Room Air 21 12/11/17 04:00 97.2 102/59 95 97.2 Laboratory Tests Test 12/11/17 07:25 White Blood Count 7.1 K/UL (4.8-10.8) Red Blood Count 4.22 M/UL (4.20-5.40) Hemoglobin 12.4 G/DL (12.0-16.0) Hematocrit 38.0 % (37.0-47.0) Mean Corpuscular Volume 90 FL (80-99) Mean Corpuscular Hemoglobin 29.4 PG (27.0-31.0) Mean Corpuscular Hemoglobin Concent 32.7 G/DL (32.0-36.0) Red Cell Distribution Width 13.2 % (11.6-14.8) Platelet Count 364 K/UL (150-450) Mean Platelet Volume 5.6 FL (6.5-10.1) L Neutrophils (%) (Auto) 62.7 % (45.0-75.0) Lymphocytes (%) (Auto) 29.2 % (20.0-45.0) Monocytes (%) (Auto) 5.1 % (1.0-10.0) Eosinophils (%) (Auto) 2.2 % (0.0-3.0) Basophils (%) (Auto) 0.8 % (0.0-2.0) Sodium Level 140 MMOL/L (136-145) Potassium Level 4.2 MMOL/L (3.5-5.1) Chloride Level 106 MMOL/L (98-107) Carbon Dioxide Level 25 MMOL/L (21-32) Anion Gap 9 mmol/L (5-15) Blood Urea Nitrogen 16 mg/dL (7-18) Creatinine 0.9 MG/DL (0.55-1.30) Estimat Glomerular Filtration Rate > 60 mL/min (>60) Glucose Level 113 MG/DL (74-106) H Calcium Level 9.4 MG/DL (8.5-10.1) Intake and Output 12/10/17 12/11/17 19:00 07:00 Intake Total 100 ml Balance 100 ml IV Total 100 ml # Voids 3 # Bowel Movements 1 Objective General Appearance: WD/WN, no apparent distress, alert EENT: PERRL/EOMI, normal ENT inspection Neck: non-tender, normal alignment, supple Cardiovascular: normal peripheral pulses, normal rate, regular rhythm, no gallop/murmur, no JVD Respiratory/Chest: chest wall non-tender, lungs clear, normal breath sounds, no respiratory distress, no accessory muscle use Abdomen: normal bowel sounds, non tender, soft, no organomegaly, no mass Extremities: normal range of motion, non-tender 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 Await cardiac stress test Status: stable Clay Fermin MD Dec 11, 2017 18:34
[2017-12-11 20:00] VITALS: BP_SYST 124; BP_SYST 129; BP_DIAS 77
[2017-12-12] VITALS: BP 108/42
[2017-12-12 04:00] VITALS: BP 108/62
[2017-12-12 07:14] LABS: BASOPHILS % (AUTO) 1.1 % (0.0-2.0); EOSINOPHILS % (AUTO) 3.1 % (0.0-3.0); HEMOGLOBIN 11.9 G/DL (12.0-16.0); MEAN CORPUSCULAR VOLUME 90 FL (80-99); MONOCYTES % (AUTO) 4.5 % (1.0-10.0); NEUTROPHILS % (AUTO) 57.2 % (45.0-75.0); PLATELET COUNT 378 K/UL (150-450); RED BLOOD COUNT 4.02 M/UL (4.20-5.40); RED CELL DISTRIBUTION WIDTH 13.1 % (11.6-14.8); WHITE BLOOD COUNT 6.8 K/UL (4.8-10.8)
[2017-12-12 07:36] LABS: ANION GAP 8 mmol/L (5-15); BLOOD UREA NITROGEN 20 mg/dL (7-18); CALCIUM 9.1 MG/DL (8.5-10.1); CARBON DIOXIDE 26 MMOL/L (21-32); CHLORIDE 107 MMOL/L (98-107); CREATININE 0.9 MG/DL (0.55-1.30); POTASSIUM 4.2 MMOL/L (3.5-5.1); SODIUM 140 MMOL/L (136-145)
[2017-12-12 07:46] VITALS: BP 116/62
[2017-12-12] MEDS: Aspirin Baby 81mg ORAL SCH (08:54)
[2017-12-12] MEDS: Heparin 5000 units/ml inj SUBQ SCH (08:55)
[2017-12-12] MEDS ORDERED: Lexiscan 0.4mg/5ml syringe IV PRN (09:15)
[2017-12-12 11:35] VITALS: BP 138/76
[2017-12-12] MEDS ORDERED: Lexiscan 0.4mg/5ml syringe IV ONE (12:00)
--- NOTE | 2017-12-12 16:51 | Diagnostic Imaging Report ---
Indications: Chest pain Technique: Single day single isotope protocol utilized. Initially, resting images obtained using IV administration 9.9 millicuries 99M technetium Myoview. Subsequently, patient underwent lexiscan stress testing. See cardiology report for details. During Lexiscan infusion, IV administration 31.4 mCi 99 M technetium Myoview. SPECT and planar images obtained. SPECT images gated to 8 phases of the cardiac cycle were also obtained, and reformatted into cine images for evaluation of ejection fraction. Comparison: none Findings: Per cardiology report, patient experienced no significant symptoms. Per cardiology report, resting EKG demonstrates normal sinus rhythm. No ST changes noted during infusion. Imaging demonstrates equivocal small area of slight decreased activity in the apex, inferolateral and anteroseptal mcduffie which is unchanged on the resting images . Calculated post stress ejection fraction 54%. No focal wall motion abnormality. The left ventricle is mildly dilated Impression: Nonischemic clinical response to pharmacologic stress, per cardiology report Nonischemic electrocardiographic response to pharmacologic stress, per cardiology report Equivocal small fixed perfusion defect at the apex extending into the anteroseptal and inferolateral mcduffie. A be an artifact of soft tissue attenuation or physiologic thinning, but could represent a small infarct. No evidence of ischemia, at level of stress achieved. Calculated post stress ejection fraction 54%
--- NOTE | 2017-12-12 17:42 | Internal Med Progress Note ---
Subjective Date of Service: Dec 12, 2017 Physician Name Fermin,Clay Attending Physician Nikhil Gibbs MD Current Medications Medications (Trade) Dose Ordered Sig/Raghu Route PRN Reason Start Time Stop Time Status Last Admin Dose Admin Acetaminophen (Tylenol) 650 mg Q4H PRN ORAL FEVER 12/08/17 10:00 01/07/18 09:59 Albuterol/ Ipratropium (Albuterol/ Ipratropium) 3 ml Q4H PRN HHN Shortness of Breath 12/08/17 11:15 12/13/17 11:14 Aspirin (ASA) 162 mg DAILY ORAL 12/09/17 09:00 01/08/18 08:59 12/12/17 08:54 Diltiazem HCl (Cardizem) 10 mg Q1H PRN IV heart rate more than 120 12/08/17 10:00 01/07/18 09:59 Enalaprilat (Vasotec) 2.5 mg Q6H PRN IV sbp more than 160 12/08/17 10:00 01/07/18 09:59 Heparin Sodium (Porcine) (Heparin 5000 units/ml) 5,000 units EVERY 12 HOURS SUBQ 12/08/17 21:00 01/07/18 20:59 12/12/17 08:55 Ketorolac Tromethamine (Toradol 30mg) 30 mg Q6H PRN IV moderate pain ( 4-6) 12/08/17 10:00 12/13/17 09:59 12/08/17 13:58 Levofloxacin (Levaquin) 500 mg Q24H ORAL 12/13/17 13:00 12/15/17 12:59 Nitroglycerin (Ntg) 0.4 mg Q5M PRN SL Prn Chest Pain 12/08/17 10:00 01/07/18 09:59 Ondansetron HCl (Zofran) 4 mg Q6H PRN IVP Nausea & Vomiting 12/08/17 10:00 01/07/18 09:59 Polyethylene Glycol (Miralax) 17 gm DAILYPRN PRN ORAL Constipation 12/08/17 10:00 01/07/18 09:59 Promethazine HCl/ Codeine (Phenergan with Codeine) 5 ml Q4H PRN ORAL For Cough 12/08/17 11:15 01/07/18 11:14 Regadenoson (Lexiscan) 0.4 mg ONCE PRN IV STRESS TEST 12/12/17 09:15 12/12/17 18:00 Temazepam (Restoril) 15 mg HSPRN PRN ORAL Insomnia 12/08/17 10:00 12/15/17 09:59 Allergies: Coded Allergies: TRAMADOL (Verified Allergy, Unknown, 12/08/17) ROS Limited/Unobtainable: No Constitutional: Reports: no symptoms HEENT: Reports: no symptoms Cardiovascular: Reports: chest pain Respiratory: Reports: no symptoms Gastrointestinal/Abdominal: Reports: no symptoms Genitourinary: Reports: no symptoms Neurologic/Psychiatric: Reports: no symptoms Subjective 52 YO F admitted with chest pain. Cover for Int Med - Dr Gibbs. Await cardiac stress test result Objective Last Vital Signs Date Time Temp Pulse Resp B/P (MAP) Pulse Ox O2 Delivery O2 Flow Rate FiO2 12/12/17 16:00 85 12/12/17 11:35 97.2 18 138/76 98 Room Air 97.2 12/12/17 07:24 21 Laboratory Tests Test 12/12/17 06:10 White Blood Count 6.8 K/UL (4.8-10.8) Red Blood Count 4.02 M/UL (4.20-5.40) L Hemoglobin 11.9 G/DL (12.0-16.0) L Hematocrit 36.0 % (37.0-47.0) L Mean Corpuscular Volume 90 FL (80-99) Mean Corpuscular Hemoglobin 29.6 PG (27.0-31.0) Mean Corpuscular Hemoglobin Concent 33.1 G/DL (32.0-36.0) Red Cell Distribution Width 13.1 % (11.6-14.8) Platelet Count 378 K/UL (150-450) Mean Platelet Volume 5.7 FL (6.5-10.1) L Neutrophils (%) (Auto) 57.2 % (45.0-75.0) Lymphocytes (%) (Auto) 34.0 % (20.0-45.0) Monocytes (%) (Auto) 4.5 % (1.0-10.0) Eosinophils (%) (Auto) 3.1 % (0.0-3.0) H Basophils (%) (Auto) 1.1 % (0.0-2.0) Sodium Level 140 MMOL/L (136-145) Potassium Level 4.2 MMOL/L (3.5-5.1) Chloride Level 107 MMOL/L (98-107) Carbon Dioxide Level 26 MMOL/L (21-32) Anion Gap 8 mmol/L (5-15) Blood Urea Nitrogen 20 mg/dL (7-18) H Creatinine 0.9 MG/DL (0.55-1.30) Estimat Glomerular Filtration Rate > 60 mL/min (>60) Glucose Level 107 MG/DL (74-106) H Calcium Level 9.1 MG/DL (8.5-10.1) Intake and Output 12/11/17 12/12/17 19:00 07:00 Intake Total 340 ml Balance 340 ml Intake Oral 240 ml IV Total 100 ml # Voids 5 # Bowel Movements 2 Objective General Appearance: WD/WN, no apparent distress, alert EENT: PERRL/EOMI, normal ENT inspection Neck: non-tender, normal alignment, supple Cardiovascular: normal peripheral pulses, normal rate, regular rhythm, no gallop/murmur, no JVD Respiratory/Chest: chest wall non-tender, lungs clear, normal breath sounds, no respiratory distress, no accessory muscle use Abdomen: normal bowel sounds, non tender, soft, no organomegaly, no mass Extremities: normal range of motion, non-tender 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 Await cardiac stress test result Clay Fermin MD Dec 12, 2017 17:42
[2017-12-12] MEDS ORDERED: LEVAQUIN500 MG ORAL (18:14)
[2017-12-12] MEDS ORDERED: NORCO 5-325 TA1 EACH ORAL (18:14)
--- NOTE | 2017-12-12 23:10 | Consultation ---
History of Present Illness General Date patient seen: Dec 12, 2017 Chief Complaint: Abdominal Pain Present Illness HPI 52-year-old, -[place] female, presents with chief complaint of chest pain, anxiety and depression. the pt was anxious and chest tightness Allergies: Coded Allergies: TRAMADOL (Verified Allergy, Unknown, 12/08/17) Medication History Scheduled Cyanocobalamin (Vitamin B-12), MCG ORAL DAILY, (Reported) Levofloxacin* (Levaquin*), 500 MG ORAL DAILY Omeprazole (Omeprazole), MG ORAL DAILY, (Reported) Scheduled PRN Hydrocodone Bit/Acetaminophen 5-325* ([place] 5-325*), 1 TAB ORAL Q4H PRN Miscellaneous Medications Albuterol Sulfate (Ventolin Hfa), PUFF INH, (Reported) Fexofenadine Hcl (Fexofenadine Hcl), MG PO, (Reported) Ibuprofen* (Motrin*), MG ORAL, (Reported) Ipratropium [place] 0.5MG/2.5ML (Ipratropium [place] 0.5MG/2.5ML), MG HHN, ( Reported) Methocarbamol (Methocarbamol), GM MC, (Reported) Mometasone/Formoterol (Dulera 100 Mcg/5 Mcg Inhaler), 0 INH, (Reported) Vit/Iron Fumarate/Fa ( Tablet), EACH PO, (Reported) Patient History Limited by: medical condition History Provided By: Patient, Medical Record, PMD Healthcare decision maker Resuscitation status Full Code Advanced Directive on File Past Medical/Surgical History Past Medical/Surgical History: (1) History of asthma (2) Costochondritis (3) GERD (gastroesophageal reflux disease) (4) Arthritis (5) Epigastric abdominal pain (6) Obesity (7) Asthma Review of Systems Psychiatric: Reports: prior hx, anxiety, depressed feelings, emotional problems Physical Exam General Appearance: no apparent distress, alert Neurologic: oriented x 3 Last 24 Hour Vital Signs Date Time Temp Pulse Resp B/P (MAP) Pulse Ox O2 Delivery O2 Flow Rate FiO2 12/12/17 16:00 85 12/12/17 12:00 70 12/12/17 11:35 97.2 71 18 138/76 98 Room Air 97.2 12/12/17 08:00 63 12/12/17 07:46 97.3 75 18 116/62 96 Room Air 97.3 12/12/17 07:24 77 18 Room Air 21 12/12/17 04:00 70 12/12/17 04:00 97.7 75 18 108/62 95 Room Air 97.7 12/12/17 00:00 97.7 86 20 108/42 98 Room Air 97.7 12/12/17 00:00 75 Intake and Output 12/11/17 12/12/17 19:00 07:00 Intake Total 340 ml Balance 340 ml Intake Oral 240 ml IV Total 100 ml # Voids 5 # Bowel Movements 2 Laboratory Tests Test 12/12/17 06:10 White Blood Count 6.8 K/UL (4.8-10.8) Red Blood Count 4.02 M/UL (4.20-5.40) L Hemoglobin 11.9 G/DL (12.0-16.0) L Hematocrit 36.0 % (37.0-47.0) L Mean Corpuscular Volume 90 FL (80-99) Mean Corpuscular Hemoglobin 29.6 PG (27.0-31.0) Mean Corpuscular Hemoglobin Concent 33.1 G/DL (32.0-36.0) Red Cell Distribution Width 13.1 % (11.6-14.8) Platelet Count 378 K/UL (150-450) Mean Platelet Volume 5.7 FL (6.5-10.1) L Neutrophils (%) (Auto) 57.2 % (45.0-75.0) Lymphocytes (%) (Auto) 34.0 % (20.0-45.0) Monocytes (%) (Auto) 4.5 % (1.0-10.0) Eosinophils (%) (Auto) 3.1 % (0.0-3.0) H Basophils (%) (Auto) 1.1 % (0.0-2.0) Sodium Level 140 MMOL/L (136-145) Potassium Level 4.2 MMOL/L (3.5-5.1) Chloride Level 107 MMOL/L (98-107) Carbon Dioxide Level 26 MMOL/L (21-32) Anion Gap 8 mmol/L (5-15) Blood Urea Nitrogen 20 mg/dL (7-18) H Creatinine 0.9 MG/DL (0.55-1.30) Estimat Glomerular Filtration Rate > 60 mL/min (>60) Glucose Level 107 MG/DL (74-106) H Calcium Level 9.1 MG/DL (8.5-10.1) Height (Feet): 5 Height (Inches): 4.00 Weight (Pounds): 240 Assessment/Plan Assessment/Plan Anxiety d/o Rocivan aleks gave referrals Cory Solorio M.D. Dec 12, 2017 23:10
--- NOTE | 2017-12-13 08:52 | Discharge Summary ---
Discharge Summary Discharge Summary _ DATE OF ADMISSION: 12/08/2017 DATE OF DISCHARGE:12/12/2017 REASON FOR ADMISSION: 52 years old female with a past medical history significant for GERD, history of DVT, asthma, presented with severe burning epigastric pain and pain with the deep breathing. She denied fever and chills She denied recent use of Coumadin. No black stools, no hematemesis, no red blood per rectum. Vital signs were stable Pulse oximetry was stable on room air Troponin was negative. pro BNP 64. EKG revealed normal sinus rhythm with T wave inversion in anterior and lateral leads. D-dimer was elevated 1.52. Patient undergone CTA of the chest which revealed no evidence of pulmonary embolism , but showed evidence of of left lung consolidation. Chest x-ray revealed retrocardiac infiltrate. Urinalysis was negative for evidence of UTI Urine toxicology screen was negative. Patient was given Aspirin and beta chris in ED along with acid chris. Patient was admitted for further management with diagnosis of epigastric pain, chest pain, rule out acute coronary syndrome, pneumonia history of asthma. CONSULTANTS: skirt maker Dr. Moran pulmonary Dr. Lawrence psychiatrist [facility] COURSE: Patient was admitted to telemetry floor. Cardiology and pulmonology closely follow. Serial troponin were negative. Lipid panel revealed elevated LDL. Statin continued along with antiplatelet therapy and beta chris. . Echocardiogram revealed preserved ejection fraction of 65-70% no wall motion abnormalities were noted, right ventricular systolic pressure of 30. Cardiac stress test revealed equivocal small fixed perfusion defect at the apex , extending into the anteroseptal and inferolateral mcduffie. Could be an artifact of soft tissue attenuation or physiologic thinning, but could represent a small infarct. No evidence of ischemia, at level of stress achieved. No evidence of reversible ischemia. Calculated ejection fraction 54% Senior Analyst Programmer cleared patient for discharge. Patient was on empiric antibiotic Blood culture were negative, sputum culture was not collected, since cough was nonproductive Antitussive provided as needed Supplemental oxygen provided as needed to keep pulse oximetry above 92% Pulmonary toilet provided. No evidence of asthma exacerbation. DVT and GI prophylaxis provided. Pain management addressed. Bowel regimen instituted. Patient clinically improved and was stable for discharge home FINAL DIAGNOSES: Pneumonia GERD Costochondritis History of asthma Costochondritis Obesity Arthritis DISCHARGE MEDICATIONS: See Medication Reconciliation list. DISCHARGE INSTRUCTIONS: Patient was discharged home. Follow up with the primary care provider. I have been assigned to dictate discharge summary for this account. I was not involved in the patient's management. Mayelin Hernandez NP Dec 13, 2017 08:52
[2017-12-13] MEDS ORDERED: Levofloxacin 500mg tab ORAL SCH (13:00)
== END 2017-12-12 19:33 | disposition home or self-care (01) | DRG 139 ==
LOC: EDSEX 07:10 → EDBD 07:10 → EMR 07:30 → 2E 08:26 → ENRESERV 09:25 → EDBEDREQ 09:28
DX: J18.9 Pneumonia, unspecified organism (principal); Z68.41 Body mass index [BMI] 40.0-44.9, adult; E66.01 Morbid (severe) obesity due to excess calories; K21.9 Gastro-esophageal reflux disease without esophagitis; M94.0 Chondrocostal junction syndrome [Tietze]; J45.909 Unspecified asthma, uncomplicated; M19.90 Unspecified osteoarthritis, unspecified site; Z86.718 Personal history of other venous thrombosis and embolism; Z90.49 Acquired absence of other specified parts of digestive tract; Z88.6 Allergy status to analgesic agent
CPT/HCPCS: 36415; 71045; 71275; 78452; 80048; 80053; 80061; 80307; 81003; 82550; 82553; 83605; 83880; 84443; 84484; 85025; 85379; 85610; 85730; 86140; 87040; 93005; 93017; 93306; 94664; 99285; J2405; J7620